=== PATIENT | female | born 1960 | race Caucasian/White ===

== ENCOUNTER → 2025-03-20 | Day surgery (SDC) | payer BC ==
[~2025-03-20] VITALS: Ht 157.5 cm; Wt 74.4 kg
[~2025-03-20] MED LIST: ACETAMINOPHEN 1000MG/100ML 100 ML IV ONE; ATOR20TA PO; BUPIVACAINE HCL/PF 0.5% (5MG/ML) 10ML ONE; CHOL100022 PO; FAMOTIDINE 20MG/2ML VIAL IV ONE; FENTANYL CITRATE/PF 50MCG/ML 2ML VIAL ONE; HYDR25TA78 PO; LACTATED RINGERS 1,000 ML IV SCH; LEVO75TA7 PO; LIDOCAINE HCL/EPINEPHRINE 1%-EPI 1:100,000 20ML VIAL ONE; MAGN400C PO; METOCLOPRAMIDE HCL 10MG/2ML VIAL ONE; MIDAZOLAM HCL 2 MG/2 ML VIAL ONE; ONDANSETRON HCL 4MG/2ML INJ IV PRN; POLYMYXIN B SULFATE 500000 UNITS/VIAL ONE; PROPOFOL 200MG/20ML VIAL IV ONE; ROPIVACAINE HCL 1% 20 ML VIAL EPI ONE
[2025-03-20] MEDS: HYDROMORPHONE HCL/PF 1MG/ML INJ IV PRN (15:27)
[2025-03-20 15:42] VITALS: BP 131/69; PULSE 72; RESP 15
[2025-03-20] MEDS: MEPERIDINE HCL/PF 25MG/ML CPJ IV PRN (15:42)
== END | disposition home or self-care (01) ==
LOC: OR 11:07
PROVIDERS: ATTEND Student in an Organized Health Care Education/Training Program
DX: S83.241A Other tear of medial meniscus, current injury, right knee, initial encounter (principal); M94.261 Chondromalacia, right knee; M17.0 Bilateral primary osteoarthritis of knee; I10 Essential (primary) hypertension; E78.5 Hyperlipidemia, unspecified; E03.9 Hypothyroidism, unspecified; Z79.890 Hormone replacement therapy; Z79.899 Other long term (current) drug therapy; X58.XXXA Exposure to other specified factors, initial encounter; Y93.89 Activity, other specified; Y92.89 Other specified places as the place of occurrence of the external cause; Y99.8 Other external cause status
CPT/HCPCS: 29881; 88305; 88311; J3010; J0665; J1308; J2004; J2765; J2250; J3490; J2704; J2795; J1171; J2175; J0131